=== PATIENT | male | born 1955 | race Caucasian/White ===

== ENCOUNTER 2019-06-08 09:35 | Emergency (ER) | payer MEDICARE, OTHER ==
[~2019-06-08] VITALS: Ht 175.3 cm; Wt 75.7 kg
--- NOTE | 2019-06-08 09:48 | NUR ---
SEEN AND EXAMINED BY DR. CHAND
--- NOTE | 2019-06-08 09:51 | NUR ---
PT BIB RA FROM [facility] FOR C/O OF DIARRHEA 5x LAST NIGHT, VOMITING, AND C/O OF BACK PAIN. PT IS AAOX4. NO SOB, NAD, VITAL SIGNS STABLE. WILL CONTINUE TO MONITOR
[2019-06-08] MEDS ORDERED: ONDANSETRON HCL/PF 4 MG/2 ML VIAL ONE (09:52)
[2019-06-08] MEDS ORDERED: MORPHINE SULFATE INJ 4 MG/ML DISP.SYRIN ONE ×3 (09:52→13:21)
[2019-06-08] MEDS ORDERED: MORPHINE SULFATE INJ 2 MG/ML DISP.SYRIN IV ONE ×3 (10:00→13:30)
[2019-06-08] MEDS ORDERED: IV NS 0.9% 1,000 ML BAG IV ONE (10:00)
[2019-06-08] MEDS ORDERED: ONDANSETRON HCL/PF 4 MG/2 ML VIAL IVP ONE (10:00)
--- NOTE | 2019-06-08 10:04 | NUR ---
TELEPHONIC CASE MANAGER AT BEDSIDE FOR XR OF CHEST
[2019-06-08 10:12] LABS: BASOPHILS % (AUTO) 0.4 % (0.0-2.0); EOSINOPHILS % (AUTO) 0.3 % (0.0-6.0); HEMATOCRIT 47 % (39-51); HEMOGLOBIN 16.3 g/dL (13.5-17.5); LYMPHOCYTES % (AUTO) 15.8 % (20.0-44.0); MEAN CORPUSCULAR HGB CONC 35 g/dl (31.0-36.0); MEAN CORPUSCULAR VOLUME 94 fL (80-96); MONOCYTES # (AUTO) 0.6 /CMM (0.1-1.30); MONOCYTES % (AUTO) 8.7 % (2.0-12.0); NEUTROPHILS # (AUTO) 4.8 /CMM (1.8-8.9); NEUTROPHILS % (AUTO) 74.8 % (43.0-81.0); PLATELET COUNT (AUTO) 105 /CMM (150-450); WHITE BLOOD COUNT (AUTO) 6.4 K/uL (4.3-11.0)
[2019-06-08] MEDS ORDERED: GABA-534 PO (10:23)
[2019-06-08] MEDS ORDERED: HYDR-4354 PO (10:23)
[2019-06-08] MEDS ORDERED: ALPR2TAB2 PO (10:23)
[2019-06-08 10:30] LABS: ALBUMIN 3.8 g/dL (3.4-5.0); BILIRUBIN,DIRECT 0.2 mg/dL (0.0-0.2); BILIRUBIN,TOTAL 0.7 mg/dL (0.2-1.0); CREATININE 0.7 mg/dL (0.6-1.3); POTASSIUM 3.2 mmol/L (3.5-5.1); TOTAL PROTEIN, SERUM 7.3 g/dL (6.4-8.2)
--- NOTE | 2019-06-08 11:48 | NUR ---
CALL BACK FROM [facility] PROPERTY CLAIMS MANAGER, PLAN TO PLACE HIM IN A SNF
--- NOTE | 2019-06-08 12:03 | NUR ---
Dennis koch in [facility] - 06/08/19 at 1203 by DAE SPOKE WITH RUBY SLOT TAG INSERTER REGARDING PLACEKMENT FOR A ASSISTED LIVING FACILITY.
--- NOTE | 2019-06-08 12:04 | NUR ---
SPOKE WITH RUBY GRAVITY PROSPECTING OPERATOR REGARDING PLACEKMENT FOR A ASSISTED LIVING FACILITY.
--- NOTE | 2019-06-08 13:11 | NUR ---
SPOKE W/ RUBY, PATIENT WILLING TO GO TO [facility] [place] TO CALL FOR REPORT. DR. VICENTE OROPEZA
--- NOTE | 2019-06-08 13:38 | NUR ---
CALLED [facility] FOR TRANSPORT TO [facility], ETA 30 MIN, TRIP# [phone]
--- NOTE | 2019-06-08 13:45 | NUR ---
REPORT GIVEN TO LANE FOR ANAT.
--- NOTE | 2019-06-08 14:36 | NUR ---
picked up by [facility] unit 113
[2019-06-08 14:38] VITALS: BP 130/55
== END 2019-06-08 14:39 ==
LOC: ER 09:38
DX: R19.7 Diarrhea, unspecified (principal); G89.29 Other chronic pain; Z95.0 Presence of cardiac pacemaker; Z98.890 Other specified postprocedural states; Z88.0 Allergy status to penicillin; Z88.1 Allergy status to other antibiotic agents; Z85.828 Personal history of other malignant neoplasm of skin; Z79.899 Other long term (current) drug therapy
CPT/HCPCS: 36415; 71045; 80048; 80076; 83690; 85025; 87081; 93005; 96361; 96374; 96375; 96376; 99284; J2270 ×3; J2405; J7030

== ENCOUNTER 2019-06-16 08:29 | Emergency (ER) | payer MEDICARE, OTHER ==
[~2019-06-16] VITALS: Ht 175.3 cm; Wt 74.8 kg
[~2019-06-16 08:29] MED LIST: ALPR2TAB2 PO; GABA-534 PO; HYDR-4354 PO
--- NOTE | 2019-06-16 08:45 | NUR ---
PT BIB RA FROM [facility] WITH C/O OF CONGESTION WITH COUGH. PATIENT IS AAOX4. AMBULATORY WITH CANE. WHEEZING CAN BE HEARD FROM AUSCULATATION WHEN PATIENT COUGHS. 97% OXYGEN ON ROOM AIR. NO SOB. NOT IN ANY DISTRESS. WILL CONTINUE TO MONITOR
[2019-06-16] MEDS ORDERED: MORPHINE SULFATE INJ 4 MG/ML DISP.SYRIN ONE (08:57)
[2019-06-16] MEDS ORDERED: MORPHINE SULFATE INJ 2 MG/ML DISP.SYRIN IV ONE (09:00)
--- NOTE | 2019-06-16 09:30 | NUR ---
Dennis kohc in [place] - 06/16/19 at 0937 by YESSI BLOOD DRAWN AND SENT TO LAB.
[2019-06-16 09:40] LABS: BASOPHILS % (AUTO) 1.4 % (0.0-2.0); EOSINOPHILS % (AUTO) 2.8 % (0.0-6.0); HEMATOCRIT 42 % (39-51); HEMOGLOBIN 14.4 g/dL (13.5-17.5); LYMPHOCYTES # (AUTO) 0.8 /CMM (0.8-4.8); MEAN CORPUSCULAR HGB CONC 34 g/dl (31.0-36.0); MEAN CORPUSCULAR VOLUME 94 fL (80-96); MONOCYTES # (AUTO) 0.3 /CMM (0.1-1.30); MONOCYTES % (AUTO) 9.4 % (2.0-12.0); NEUTROPHILS # (AUTO) 2.4 /CMM (1.8-8.9); NEUTROPHILS % (AUTO) 65.4 % (43.0-81.0); PLATELET COUNT (AUTO) 69 /CMM (150-450); RED BLOOD CELL COUNT(AUTO) 4.47 MIL/uL (4.5-6.0); WHITE BLOOD COUNT (AUTO) 3.7 K/uL (4.3-11.0)
[2019-06-16 09:48] LABS: CALCIUM, SERUM 8.6 mg/dL (8.5-10.1); CREATININE 0.6 mg/dL (0.6-1.3); POTASSIUM 4.5 mmol/L (3.5-5.1)
--- NOTE | 2019-06-16 09:50 | NUR ---
PATIENT RETURNED FROM XRAY
[2019-06-16 10:13] LABS: LYMPHOCYTES % (MANUAL) 22 % (16-48); MONOCYTES % (MANUAL) 9 % (0-11.0); NEUTROPHILS % (MANUAL) 68 (42-76)
[2019-06-16 10:14] LABS: EOSINOPHILS % (MANUAL) 1 % (0-4)
[2019-06-16] MEDS ORDERED: ALBUTEROL FS 2.5 MG/3 ML VIAL.NEB NEB ONE ×2 (10:30→11:30)
[2019-06-16] MEDS ORDERED: IPRATROPIUM NEB FS 0.5 MG/2.5 ML AMPUL.NEB NEB ONE ×2 (10:30→11:30)
[2019-06-16] MEDS ORDERED: IPRATROPIUM NEB FS 0.5 MG/2.5 ML AMPUL.NEB ONE ×2 (10:35→12:32)
[2019-06-16] MEDS ORDERED: ALBUTEROL FS 2.5 MG/3 ML VIAL.NEB ONE ×2 (10:35→12:32)
--- NOTE | 2019-06-16 10:41 | NUR ---
DR MILES ON PHONE W/ DR DRIVER.
--- NOTE | 2019-06-16 10:46 | NUR ---
RT PT REFUSED BLOOD GAS AWARE PT REFUSES TX AFTER 1 MIN ON MASK Addendum: 06/16/19 at 1053 by ERNA HARRELL RT Amended: Links added.
[2019-06-16] MEDS ORDERED: HYDROCODONE/APAP 5/325MG 1 EACH TABLET PO ONE (11:30)
[2019-06-16] MEDS ORDERED: AZITHROMYCIN 250 MG TABLET PO ONE (11:30)
[2019-06-16] MEDS ORDERED: AZITHROMYCIN 250 MG TABLET ONE (11:33)
[2019-06-16] MEDS ORDERED: HYDROCODONE/APAP 5/325MG 1 EACH TABLET ONE (11:33)
--- NOTE | 2019-06-16 12:15 | NUR ---
REPORT GIVEN TO OSIEL AT [facility] FOR ANAT.
--- NOTE | 2019-06-16 12:40 | NUR ---
CALLED [facility] [phone] TRIP #[phone]
--- NOTE | 2019-06-16 14:08 | NUR ---
CJ ARRIVED FOR PATIENT TO BE TRANSFERRED TO [facility]. REPORT GIVEN TO SHIRLEY RODRIGUEZ TO CARRY OUT TRANSFER.
[2019-06-16 14:15] VITALS: BP 118/72
== END 2019-06-16 14:15 | disposition home or self-care (01) ==
LOC: ER 08:31
DX: J44.1 Chronic obstructive pulmonary disease with (acute) exacerbation (principal); Z95.0 Presence of cardiac pacemaker; Z85.828 Personal history of other malignant neoplasm of skin; Z88.0 Allergy status to penicillin; Z88.1 Allergy status to other antibiotic agents; Z79.899 Other long term (current) drug therapy; Z98.890 Other specified postprocedural states
CPT/HCPCS: 36415; 71046; 80048; 84145; 85025; 87040 ×2; 93005; 94640 ×2; 96374; 99284; J2270

== ENCOUNTER 2019-07-10 07:02 | Emergency (ER) | payer MEDICARE, OTHER ==
[~2019-07-10] VITALS: Ht 175.3 cm; Wt 70.3 kg
--- NOTE | 2019-07-10 07:11 | NUR ---
PT [id number] C/O R SIDED UPPER ABDOMINAL PAIN X2-3 WEEKS +NAUSEA, +VOMITTING, -FEVER. PT AAOX4, VSS, BREATHING EVEN AND UNLABORED ON ROOM AIR W/ NAD. PT CONNECTED TO THE MONITOR AND POX.
--- NOTE | 2019-07-10 07:26 | NUR ---
PT AMBULATED TO RESTROOM USING CANE
[2019-07-10] MEDS ORDERED: FAMOTIDINE/PF INJ 20 MG/2 ML VIAL IV ONE ×2 (07:30→07:33)
[2019-07-10] MEDS ORDERED: IV NS 0.9% 1,000 ML BAG IV ONE (07:30)
[2019-07-10] MEDS ORDERED: MORPHINE SULFATE INJ 2 MG/ML DISP.SYRIN IV ONE ×2 (07:30→08:30)
[2019-07-10] MEDS ORDERED: ONDANSETRON HCL/PF 4 MG/2 ML VIAL IVP ONE (07:30)
[2019-07-10] MEDS ORDERED: ACETAMINOPHEN ES 500 MG TABLET PO ONE (07:30)
[2019-07-10] MEDS ORDERED: MORPHINE SULFATE INJ 4 MG/ML DISP.SYRIN ONE ×3 (07:32→08:15)
[2019-07-10] MEDS ORDERED: ONDANSETRON HCL/PF 4 MG/2 ML VIAL ONE (07:32)
[2019-07-10] MEDS ORDERED: ACETAMINOPHEN ES 500 MG TABLET ONE (07:32)
--- NOTE | 2019-07-10 07:35 | NUR ---
IV LINE ESTABLISHED, BLOOD DRAWN AND SENT TO LAB.
[2019-07-10 07:48] LABS: BASOPHILS # (AUTO) 0.1 /CMM (0.0-0.2); BASOPHILS % (AUTO) 2.4 % (0.0-2.0); EOSINOPHILS % (AUTO) 2.3 % (0.0-6.0); HEMATOCRIT 48 % (39-51); HEMOGLOBIN 16.2 g/dL (13.5-17.5); LYMPHOCYTES # (AUTO) 0.9 /CMM (0.8-4.8); LYMPHOCYTES % (AUTO) 20.8 % (20.0-44.0); MEAN CORPUSCULAR HGB CONC 34 g/dl (31.0-36.0); MEAN CORPUSCULAR VOLUME 94 fL (80-96); MONOCYTES # (AUTO) 0.2 /CMM (0.1-1.30); MONOCYTES % (AUTO) 4.6 % (2.0-12.0); NEUTROPHILS % (AUTO) 69.9 % (43.0-81.0); PLATELET COUNT (AUTO) 97 /CMM (150-450); RED BLOOD CELL COUNT(AUTO) 5.08 MIL/uL (4.5-6.0); WHITE BLOOD COUNT (AUTO) 4.2 K/uL (4.3-11.0)
[2019-07-10 07:54] LABS: CALCIUM, SERUM 9.3 mg/dL (8.5-10.1); CREATININE 0.6 mg/dL (0.6-1.3)
[2019-07-10 08:00] LABS: BILIRUBIN,DIRECT 0.1 mg/dL (0.0-0.2); BILIRUBIN,TOTAL 0.7 mg/dL (0.2-1.0); TOTAL PROTEIN, SERUM 7.9 g/dL (6.4-8.2)
--- NOTE | 2019-07-10 08:35 | NUR ---
PT TAKEN TO CT
--- NOTE | 2019-07-10 08:44 | NUR ---
Dennis koch in [facility] - 07/10/19 at 0845 by VIRA PT TAKEN TO CT
--- NOTE | 2019-07-10 08:45 | NUR ---
PT BACK FROM CT
[2019-07-10 09:55] LABS: BAND % (MANUAL) 1 % (0.0-5.0); EOSINOPHILS % (MANUAL) 3 % (0-4); LYMPHOCYTES % (MANUAL) 21 % (16-48); MONOCYTES % (MANUAL) 4 % (0-11.0); NEUTROPHILS % (MANUAL) 71 (42-76)
[2019-07-10] MEDS ORDERED: KETOROLAC TROMETHAMINE INJ 30 MG/ML VIAL IV ONE (10:00)
[2019-07-10] MEDS ORDERED: KETOROLAC TROMETHAMINE INJ 30 MG/ML VIAL ONE (10:03)
--- NOTE | 2019-07-10 10:33 | NUR ---
CALLED [facility] FOR TRANSPORT TO [facility]. ETA 1200 TRIP # [id number].
--- NOTE | 2019-07-10 10:41 | NUR ---
CALLED [facility] FOR BLS TRANSPORT. ETA 1100.
--- NOTE | 2019-07-10 11:11 | NUR ---
Patient discharged to home in stable condition. Written and verbal after care instructions given. Patient verbalizes understanding of instruction. Pt transported via [facility].
[2019-07-10 11:14] VITALS: BP 127/81
== END 2019-07-10 11:15 ==
LOC: ER 07:04
DX: K52.9 Noninfective gastroenteritis and colitis, unspecified (principal); R10.10 Upper abdominal pain, unspecified; G89.29 Other chronic pain; M54.9 Dorsalgia, unspecified; Z85.828 Personal history of other malignant neoplasm of skin; Z88.0 Allergy status to penicillin; Z88.1 Allergy status to other antibiotic agents; Z79.899 Other long term (current) drug therapy; Z95.0 Presence of cardiac pacemaker; Z98.890 Other specified postprocedural states
CPT/HCPCS: 36415; 74176; 80048; 80076; 83690; 85025; 96361; 96374; 96375; 96376; 99284; J1885; J2270 ×3; J2405; J3490; J7030

== ENCOUNTER 2019-09-06 12:23 | Emergency (ER) | payer MEDICARE, OTHER ==
[~2019-09-06] VITALS: Ht 175.3 cm; Wt 74.8 kg
[2019-09-06] MEDS ORDERED: IV NS 0.9% 500 ML BAG IV ONE (13:00)
[2019-09-06] MEDS ORDERED: MORPHINE SULFATE INJ 2 MG/ML DISP.SYRIN IV ONE (13:00)
[2019-09-06] MEDS ORDERED: ONDANSETRON HCL/PF 4 MG/2 ML VIAL IVP ONE (13:00)
[2019-09-06 13:20] LABS: CALCIUM, SERUM 8.9 mg/dL (8.5-10.1); CREATININE 0.6 mg/dL (0.6-1.3); POTASSIUM 4.2 mmol/L (3.5-5.1)
[2019-09-06 13:23] LABS: BASOPHILS % (AUTO) 1.4 % (0.0-2.0); EOSINOPHILS % (AUTO) 1.5 % (0.0-6.0); HEMATOCRIT 45 % (39-51); HEMOGLOBIN 15.3 g/dL (13.5-17.5); LYMPHOCYTES # (AUTO) 0.8 /CMM (0.8-4.8); LYMPHOCYTES % (AUTO) 23.7 % (20.0-44.0); MEAN CORPUSCULAR HGB CONC 34 g/dl (31.0-36.0); MEAN CORPUSCULAR VOLUME 93 fL (80-96); MONOCYTES # (AUTO) 0.5 /CMM (0.1-1.30); MONOCYTES % (AUTO) 15.7 % (2.0-12.0); NEUTROPHILS # (AUTO) 1.9 /CMM (1.8-8.9); NEUTROPHILS % (AUTO) 57.7 % (43.0-81.0); PLATELET COUNT (AUTO) 86 /CMM (150-450); RED BLOOD CELL COUNT(AUTO) 4.79 MIL/uL (4.5-6.0); WHITE BLOOD COUNT (AUTO) 3.4 K/uL (4.3-11.0)
[2019-09-06 13:26] LABS: ALBUMIN 3.5 g/dL (3.4-5.0); BILIRUBIN,DIRECT 0.2 mg/dL (0.0-0.2); BILIRUBIN,TOTAL 0.6 mg/dL (0.2-1.0); TOTAL PROTEIN, SERUM 6.9 g/dL (6.4-8.2)
[2019-09-06] MEDS ORDERED: ONDANSETRON HCL/PF 4 MG/2 ML VIAL ONE (13:37)
[2019-09-06] MEDS ORDERED: MORPHINE SULFATE INJ 4 MG/ML DISP.SYRIN ONE (13:37)
--- NOTE | 2019-09-06 13:47 | NUR ---
Patient is hard stick noted needle scar track hx of IV used ,Obtained heplock RT wrist noted redness and MD aware place cool site to area and elevate
[2019-09-06] MEDS ORDERED: oxyCODONE/APAP (5/325 MG) 1 UDTAB TABLET PO ONE (14:30)
--- NOTE | 2019-09-06 14:43 | NUR ---
CALLED [facility] ETA 1700.
[2019-09-06] MEDS ORDERED: oxyCODONE/APAP (5/325 MG) 1 UDTAB TABLET ONE (14:46)
--- NOTE | 2019-09-06 14:50 | NUR ---
CALLED [facility] FOR TRANSPORT TO [facility]. ETA 1630. TRIP NUMBER [id number].
--- NOTE | 2019-09-06 14:59 | NUR ---
Called report rehab facility spoke to Juve made aware patient is DC back to FACILITY
--- NOTE | 2019-09-06 14:59 | NUR ---
Noted patient is ambulatory non distress no nausea and vomiting ,called transporter
[2019-09-06 15:38] LABS: EOSINOPHILS % (MANUAL) 1 % (0-4); LYMPHOCYTES % (MANUAL) 36 % (16-48); MONOCYTES % (MANUAL) 9 % (0-11.0); NEUTROPHILS % (MANUAL) 52 (42-76); REACTIVE LYMPHOCYTES 2 % (0-0)
[2019-09-06 16:55] VITALS: BP 134/67
--- NOTE | 2019-09-06 16:56 | NUR ---
Patient awakealert ambulatory refused to stay in bed ,noted no nause and vomit follow up for transportation
--- NOTE | 2019-09-06 17:33 | NUR ---
EMS transporter here report given to aure to [facility] /Facility
== END 2019-09-06 17:33 | disposition home or self-care (01) ==
LOC: ER 12:49
DX: R10.31 Right lower quadrant pain (principal); G89.29 Other chronic pain; Z95.0 Presence of cardiac pacemaker; Z98.890 Other specified postprocedural states; Z88.0 Allergy status to penicillin; Z88.1 Allergy status to other antibiotic agents; Z79.899 Other long term (current) drug therapy; Z85.828 Personal history of other malignant neoplasm of skin
CPT/HCPCS: 36415; 74176; 80048; 80076; 83605; 83690; 85025; 96374; 96375; 99284; J2270; J2405; J7040

== ENCOUNTER → 2019-09-22 | Emergency (ER) | payer MEDICARE, OTHER ==
[~2019-09-22] VITALS: Ht 167.6 cm; Wt 68.0 kg
[2019-09-22 13:04] VITALS: BP 145/88
--- NOTE | 2019-09-22 13:06 | NUR ---
Patient does not wish to proceed with medical care recommended by Dr. Fischer. Patient given information related to possible complications, up to and including , which could occur as a result of leaving the hospital at this time. Patient verbalizes understanding of risks involved due to leaving against medical advice. Patient has signed AMA form.
--- NOTE | 2019-09-22 13:07 | NUR ---
(pt. is ambulatory with a steady gait, alert and oriented x 4. IV removed. Catheter intact and site benign. Pressure and 4x4 applied to site. No bleeding noted.
== END | disposition left against medical advice (07) ==
LOC: ER 12:58
DX: R41.82 Altered mental status, unspecified (principal); T40.601A Poisoning by unspecified narcotics, accidental (unintentional), initial encounter; G89.29 Other chronic pain; Z95.0 Presence of cardiac pacemaker; Z98.890 Other specified postprocedural states; Z85.828 Personal history of other malignant neoplasm of skin; Z88.0 Allergy status to penicillin; Z88.1 Allergy status to other antibiotic agents; Z79.899 Other long term (current) drug therapy; Y92.89 Other specified places as the place of occurrence of the external cause

== ENCOUNTER → 2019-09-26 | Emergency (ER) | payer MEDICARE, OTHER ==
[~2019-09-26] VITALS: Ht 175.3 cm; Wt 72.6 kg
[~2019-09-26] MED LIST changes: +HYDROCODONE/APAP 5/325MG 1 EACH TABLET ONE; +HYDROCODONE/APAP 5/325MG 1 EACH TABLET PO ONE; +IV NS 0.9% 1,000 ML BAG IV ONE; +IV NS 0.9% 500 ML BAG IV ONE; +POTASSIUM CHLORIDE 20 MEQ TAB.PRT.SR PO ONE; +POTASSIUM CL. PREMIX PERIPHER. 50 ML IV SCH
--- NOTE | 2019-09-26 15:15 | NUR ---
PT REC'D TO ER VIA EMS PT HAS FAINTED TWICE IN ONE WEEK HARD STICK WS HERE FOR THE SAME THING WAS STUCK 9 TIMES DEWAYNE TRIED 2 TIMES GENER ONCE CALLED FOR CENTRAL LINE . PT CALM AND QUIET VSS
--- NOTE | 2019-09-26 16:10 | NUR ---
UA SENT TO LAB
[2019-09-26 16:40] LABS: BASOPHILS % (AUTO) 0.6 % (0.0-2.0); EOSINOPHILS % (AUTO) 2.1 % (0.0-6.0); HEMATOCRIT 43 % (39-51); HEMOGLOBIN 14.9 g/dL (13.5-17.5); LYMPHOCYTES # (AUTO) 0.7 /CMM (0.8-4.8); LYMPHOCYTES % (AUTO) 11.8 % (20.0-44.0); MEAN CORPUSCULAR HGB CONC 34 g/dl (31.0-36.0); MEAN CORPUSCULAR VOLUME 93 fL (80-96); MONOCYTES # (AUTO) 0.6 /CMM (0.1-1.30); MONOCYTES % (AUTO) 11.3 % (2.0-12.0); NEUTROPHILS # (AUTO) 4.3 /CMM (1.8-8.9); NEUTROPHILS % (AUTO) 74.2 % (43.0-81.0); PLATELET COUNT (AUTO) 86 /CMM (150-450); RED BLOOD CELL COUNT(AUTO) 4.66 MIL/uL (4.5-6.0); WHITE BLOOD COUNT (AUTO) 5.8 K/uL (4.3-11.0)
[2019-09-26 16:56] VITALS: BP 110/73
--- NOTE | 2019-09-26 16:57 | NUR ---
PT WAS VERY HARD STICK RT FA 22G GIVEN NS BOLUS AND NORCO 5/325 FOR BACK PAINA
[2019-09-26 17:03] LABS: CALCIUM, SERUM 6.1 mg/dL (8.5-10.1); CARBON DIOXIDE 22 mmol/L (21-32); CHLORIDE 117 mmol/L (98-107); CREATININE 0.3 mg/dL (0.6-1.3); GLUCOSE 75 mg/dL (74-106); SODIUM SERUM 147 mmol/L (136-145); UREA NITROGEN, BLOOD 15 mg/dL (7-18)
[2019-09-26 17:06] LABS: POTASSIUM 2.7 mmol/L (3.5-5.1)
--- NOTE | 2019-09-26 17:26 | NUR ---
GOT ACCEPTED TO [facility] ACCEPTING MD KATHYA DRIVER.
--- NOTE | 2019-09-26 18:15 | NUR ---
Patient does not wish to proceed with medical care recommended by ( ). Patient given information related to possible complications, up to and including , which could occur as a result of leaving the hospital at this time. Patient verbalizes understanding of risks involved due to leaving against medical advice. Patient has signed AMA form.
[2019-09-26 18:58] LABS: LYMPHOCYTES % (MANUAL) 9 % (16-48); MONOCYTES % (MANUAL) 10 % (0-11.0); NEUTROPHILS % (MANUAL) 80 (42-76); REACTIVE LYMPHOCYTES 1 % (0-0)
== END | disposition left against medical advice (07) ==
LOC: ER 15:08
DX: R07.89 Other chest pain (principal); R55 Syncope and collapse; E87.6 Hypokalemia; R19.7 Diarrhea, unspecified; G89.29 Other chronic pain; M54.9 Dorsalgia, unspecified; Z79.899 Other long term (current) drug therapy; Z98.890 Other specified postprocedural states; Z88.0 Allergy status to penicillin; Z88.1 Allergy status to other antibiotic agents; Z85.828 Personal history of other malignant neoplasm of skin
CPT/HCPCS: 36415; 71045-TC; 80048-TC; 84484-TC; 85025-TC

== ENCOUNTER 2021-03-28 14:17 | Emergency (ER) | payer MEDICARE, OTHER ==
[~2021-03-28] VITALS: Ht 175.3 cm; Wt 77.1 kg
[~2021-03-28 14:17] MED LIST changes: -HYDROCODONE/APAP 5/325MG 1 EACH TABLET ONE; -HYDROCODONE/APAP 5/325MG 1 EACH TABLET PO ONE; -IV NS 0.9% 1,000 ML BAG IV ONE; -IV NS 0.9% 500 ML BAG IV ONE; -POTASSIUM CHLORIDE 20 MEQ TAB.PRT.SR PO ONE; -POTASSIUM CL. PREMIX PERIPHER. 50 ML IV SCH
--- NOTE | 2021-03-28 14:21 | NUR ---
TO ER BED 4, C/O BIB RA [facility],WORSENING ABDOMINAL PAIN X 3 WEEKS,CONSTIPATED, AWAITING MD BRIONES
[2021-03-28] MEDS ORDERED: ZOLP5TAB8 PO (14:34)
[2021-03-28] MEDS ORDERED: METH10TA2 PO (14:34)
[2021-03-28] MEDS ORDERED: CYCL5TAB PO (14:34)
[2021-03-28] MEDS ORDERED: PANT40TA2 PO (14:34)
[2021-03-28] MEDS ORDERED: CLOT15CR27 TP (14:34)
[2021-03-28] MEDS ORDERED: SERT50TA PO (14:34)
[2021-03-28] MEDS ORDERED: MEGE400O4 PO (14:34)
--- NOTE | 2021-03-28 14:35 | NUR ---
SALINE LOCK ESTABLISHED, BLOOD DRAWN
--- NOTE | 2021-03-28 15:00 | NUR ---
URINE COLLECTED AND SENT TO LAB
[2021-03-28 15:18] LABS: CALCIUM, SERUM 9.3 mg/dL (8.5-10.1); CARBON DIOXIDE 22 mmol/L (21-32); CHLORIDE 104 mmol/L (98-107); CREATININE 0.7 mg/dL (0.6-1.3); GLUCOSE 90 mg/dL (74-106); POTASSIUM 3.8 mmol/L (3.5-5.1); SODIUM SERUM 141 mmol/L (136-145); UREA NITROGEN, BLOOD 21 mg/dL (7-18)
[2021-03-28 15:18] LABS: BILIRUBIN,URINE SMALL (NEGATIVE); COLOR,URINE DARK YELLOW (YELLOW); LEUKOCYTE ESTERASE ,URINE Negative (NEGATIVE); NITRITE, URINE Negative (NEGATIVE); PH,URINE 5.5 (5.0-8.0); PROTEIN,URINE Negative (NEGATIVE); UGLUCOSE Negative (NEGATIVE); UROBILINOGEN,URINE 0.2 EU/dL (0.2)
[2021-03-28 15:24] LABS: ALANINE AMINOTRANSFERASE 19 U/L (12-78); ALBUMIN 4.1 g/dL (3.4-5.0); ALKALINE PHOSPHATASE 95 U/L (46-116); ASPARTATE AMINOTRANSFERASE 19 U/L (15-37); BILIRUBIN,DIRECT 0.2 mg/dL (0.0-0.2); BILIRUBIN,TOTAL 0.8 mg/dL (0.2-1.0); LIPASE 55 U/L (73-393); TOTAL PROTEIN, SERUM 7.7 g/dL (6.4-8.2)
[2021-03-28] MEDS ORDERED: KETOROLAC TROMETHAMINE 15 MG/ML VIAL ONE (15:29)
[2021-03-28] MEDS ORDERED: BISACODYL SUPP (10 MG) 10 MG/SUPP.RECT SUPP.RECT RC ONE ×2 (15:29→15:30)
[2021-03-28] MEDS ORDERED: KETOROLAC TROMETHAMINE INJ 30 MG/ML VIAL IV ONE (15:30)
[2021-03-28 15:31] LABS: BASOPHILS % (AUTO) 0.7 % (0.0-2.0); EOSINOPHILS % (AUTO) 1.9 % (0.0-6.0); HEMATOCRIT 47 % (39-51); HEMOGLOBIN 16.8 g/dL (13.5-17.5); LYMPHOCYTES # (AUTO) 1.8 K/uL (0.8-4.8); LYMPHOCYTES % (AUTO) 26.7 % (20.0-44.0); MEAN CORPUSCULAR HGB CONC 36 g/dl (31.0-36.0); MEAN CORPUSCULAR VOLUME 92 fL (80-96); MONOCYTES # (AUTO) 0.5 K/uL (0.1-1.30); MONOCYTES % (AUTO) 6.9 % (2.0-12.0); NEUTROPHILS # (AUTO) 4.2 K/uL (1.8-8.9); NEUTROPHILS % (AUTO) 63.8 % (43.0-81.0); PLATELET COUNT (AUTO) 101 K/uL (150-450); RED BLOOD CELL COUNT(AUTO) 5.14 MIL/uL (4.5-6.0); WHITE BLOOD COUNT (AUTO) 6.7 K/uL (4.3-11.0)
[2021-03-28] MEDS ORDERED: IV NS 0.9% 0 ML IV ONE (15:33)
[2021-03-28] MEDS ORDERED: IOHEXOL-300 100 ML VIAL IV ONE (15:33)
[2021-03-28 15:34] LABS: BACTERIA,URINE Few /HPF (None Seen); MUCUS,URINE Many /LPF (None Seen); SQUAMOUS EPITHELIAL CELL,UR Few /HPF (None Seen)
--- NOTE | 2021-03-28 15:39 | NUR ---
US AT BEDSIDE
[2021-03-28 16:09] VITALS: BP 140/78
--- NOTE | 2021-03-28 16:14 | NUR ---
TRANSPORT [facility] CALLED ETA 30 MINS.
[2021-03-28] MEDS ORDERED: IV NS 0.9% 1,000 ML IV ONE (16:30)
== END 2021-03-28 16:58 | disposition left against medical advice (07) ==
LOC: ER 14:21
DX: R10.84 Generalized abdominal pain (principal); K59.00 Constipation, unspecified; E86.0 Dehydration; D69.6 Thrombocytopenia, unspecified; I25.10 Atherosclerotic heart disease of native coronary artery without angina pectoris; G89.29 Other chronic pain; F32.9 Major depressive disorder, single episode, unspecified; G47.00 Insomnia, unspecified; Z95.0 Presence of cardiac pacemaker; Z98.890 Other specified postprocedural states; Z88.0 Allergy status to penicillin; Z88.1 Allergy status to other antibiotic agents; Z79.899 Other long term (current) drug therapy
CPT/HCPCS: 36415; 76705; 80048; 80076; 81001; 83690; 84484; 85025; 85730; 93005; 96374; 99285; J1885; J7050; Q9967

== ENCOUNTER 2022-11-13 17:54 | Inpatient (IN) | payer BC, OTHER ==
[~2022-11-13] VITALS: Ht 175.3 cm; Wt 82.1 kg
[~2022-11-13 17:54] MED LIST changes: -ALPR2TAB2 PO; +CLOT15CR27 TP; +CYCL5TAB PO; -GABA-534 PO; -HYDR-4354 PO; +MEGE400O4 PO; +METH10TA2 PO; +PANT40TA2 PO; +SERT50TA PO; +ZOLP5TAB8 PO
[2022-11-13] MEDS ORDERED: MORPHINE SULFATE INJ 2 MG/ML DISP.SYRIN IV ONE ×3 (18:30→23:30)
[2022-11-13] MEDS ORDERED: PANTOPRAZOLE 40 MG VIAL IV ONE (18:30)
[2022-11-13] MEDS ORDERED: IV NS 0.9% 1,000 ML BAG IV ONE (18:30)
[2022-11-13] MEDS ORDERED: ONDANSETRON HCL/PF 4 MG/2 ML VIAL IVP ONE (18:30)
[2022-11-13] MEDS ORDERED: ONDANSETRON HCL/PF 4 MG/2 ML VIAL ONE ×2 (18:36→23:50)
[2022-11-13] MEDS ORDERED: MORPHINE SULFATE INJ 4 MG/ML DISP.SYRIN ONE (18:36)
[2022-11-13] MEDS ORDERED: PANTOPRAZOLE 40 MG VIAL ONE (18:36)
[2022-11-13 19:05] LABS: ALBUMIN 3.5 g/dL (3.4-5.0); BILIRUBIN,DIRECT 0.1 mg/dL (0.0-0.2); BILIRUBIN,TOTAL 0.3 mg/dL (0.2-1.0); CALCIUM, SERUM 8.8 mg/dL (8.5-10.1); CREATININE 0.6 mg/dL (0.6-1.3); POTASSIUM 3.7 mmol/L (3.5-5.1); TOTAL PROTEIN, SERUM 6.3 g/dL (6.4-8.2)
--- NOTE | 2022-11-13 19:10 | NUR ---
PT IN BED 7, A/O X4 BREATHING UNLABORED ON ROOM AIR 98% o2sat. C/O ABDOMINAL PAIN 10/10 PAIN AND BLOOD IN STOOL. PT CONNECTED TO BEDSIDE MONITOR HI FOWLERS. BED LOCKED IN LOWEST POSTION SIDE RAILS UP.
--- NOTE | 2022-11-13 19:13 | NUR ---
R HAND 22G STARTED BLOOD DRAWN AND AND SENT TO LAB.
[2022-11-13] MEDS ORDERED: MORPHINE SULFATE INJ 2 MG/ML DISP.SYRIN ONE (19:34)
[2022-11-13 19:46] LABS: BASOPHILS % (AUTO) 0.7 % (0.0-2.0); EOSINOPHILS % (AUTO) 2.5 % (0.0-6.0); HEMATOCRIT 44 % (39-51); HEMOGLOBIN 14.6 g/dL (13.5-17.5); LYMPHOCYTES # (AUTO) 1.3 K/uL (0.8-4.8); LYMPHOCYTES % (AUTO) 20.2 % (20.0-44.0); MEAN CORPUSCULAR HGB CONC 34 g/dl (31.0-36.0); MEAN CORPUSCULAR VOLUME 93 fL (80-96); MONOCYTES # (AUTO) 0.5 K/uL (0.1-1.30); MONOCYTES % (AUTO) 7.5 % (2.0-12.0); NEUTROPHILS # (AUTO) 4.4 K/uL (1.8-8.9); NEUTROPHILS % (AUTO) 69.1 % (43.0-81.0); PLATELET COUNT (AUTO) 107 K/uL (150-450); RED BLOOD CELL COUNT(AUTO) 4.66 MIL/uL (4.5-6.0); WHITE BLOOD COUNT (AUTO) 6.3 K/uL (4.3-11.0)
[2022-11-13] MEDS ORDERED: IOHEXOL-300 100 ML VIAL IV ONE (19:47)
[2022-11-13] MEDS ORDERED: IV NS 0.9% 250 ML IV ONE (19:47)
--- NOTE | 2022-11-13 19:52 | NUR ---
CT CALLED ETA.
--- NOTE | 2022-11-13 20:01 | NUR ---
PT TAKEN TO CT
--- NOTE | 2022-11-13 20:01 | NUR ---
URINE SAMPLE COLLECTED AND SENT TO LAB
[2022-11-13 20:29] LABS: BILIRUBIN,URINE NEGATIVE (NEGATIVE); COLOR,URINE YELLOW (YELLOW); LEUKOCYTE ESTERASE ,URINE NEGATIVE (NEGATIVE); NITRITE, URINE NEGATIVE (NEGATIVE); PROTEIN,URINE NEGATIVE (NEGATIVE); UGLUCOSE NEGATIVE (NEGATIVE); UROBILINOGEN,URINE 0.2 EU/dL (0.2)
[2022-11-13 22:18] LABS: BACTERIA,URINE None seen /HPF (None Seen); RBC,URINE 0-2 /HPF (0-2); SQUAMOUS EPITHELIAL CELL,UR None Seen /HPF (None Seen); WBC,URINE NONE SEEN /HPF (0-3)
--- NOTE | 2022-11-13 23:15 | NUR ---
DR Brii GRIFFIN FOR Shonda DRIVER, PAGED.
[2022-11-13] MEDS ORDERED: ONDANSETRON HCL/PF 4 MG/2 ML VIAL IV STA (23:43)
--- NOTE | 2022-11-14 00:08 | NUR ---
DR IVERSON PAGED PER DR PINEDA.
--- NOTE | 2022-11-14 00:10 | NUR ---
NPO STARTING MIDNIGHT PER MD CHANDLER
--- NOTE | 2022-11-14 00:11 | NUR ---
REPORT GIVEN TO GUANAKITO LUCIANO FOR ANAT
[2022-11-14] MEDS ORDERED: PANTOPRAZOLE 80 MG in IV NS 0.9% 500 ML IV PRN (00:30)
--- NOTE | 2022-11-14 00:45 | NUR ---
MS DOWNSTAIRS MAID NOTE RECEIVED PATIENT FROM ER WITH RADHA. PATIENT IS A/O TIMES 4, ABLE TO VERBALIZE NEEDS. NO SOB, NO DISTRESS NOTED. ON ROOM AIR AND TOLERATING WELL. IV ACCESS ON THE RIGHT WRIST # 20, INTACT. PT'S SKIN IS INTACT. ALL THE BELONGINGS ACCOUNTED AND SIGN FOR. ALL SAFETY MEASURES IN PLACE. BED LOCKED IN THE LOWEST POSITION. CALL LIGHT AND TABLE IN EASY REACH. SIDE RAILS UP TIMES 2. WILL CONTINUE TO MONITOR CLOSELY.
[2022-11-14] MEDS: MORPHINE SULFATE INJ 2 MG/ML DISP.SYRIN IV PRN ×3 (02:15→11:09)
--- NOTE | 2022-11-14 02:15 | NUR ---
MS RN NOTE PT C/O TO ABDOMEN. MD FAVIOLA CHANDLER CALLED, AND MADE AWARE. NEW ORDER RECEIVED FOR MORPHINE 2 MG IV Q4H PRN. ORDER CARRIED OUT. MORPHINE ADMINISTERED TO PT.
[2022-11-14] MEDS: IV D5/ 0.9% NACL 1,000 ML IV PRN ×2 (02:28→18:02)
--- NOTE | 2022-11-14 07:03 | NUR ---
MS RN CLOSING NOTE PT REPORTS PAIN TO ABDOMEN. MORPHINE GIVEN TO PT. PT LEFT IN STABLE CONDITION. NO SOB, NO RESPIRATORY DISTRESS NOTED. SAFETY MEASURES MAINTAINED. WILL ENDORSE PT TO AM SHIFT NURSE FOR ANAT.
--- NOTE | 2022-11-14 07:46 | NUR ---
RN OPENING NOTE PATIENT AWAKE IN BED RESTING, A/O X 4. NO S/S OF PAIN NOTED AT THIS TIME. ON ROOM AIR, BREATHING EVEN UNLABORED, NO DISTRESS OR SHORTNESS OF BREATH NOTED. IV ACCESS R HAND #22G INTACT, PATENT AND FLUSHING WELL. FALL AND SAFETY MEASURES IN PLACE, BED ALARM ON, BED IN LOW AND LOCK POSITION, CALL LIGHT AND TABLE WITHIN EASY REACH, SIDE RAILS UP X2. WILL CONTINUE TO MONITOR.
--- NOTE | 2022-11-14 07:53 | NUR ---
RN OPENING NOTE PATIENT AWAKE IN BED RESTING, A/O X 4. NO S/S OF PAIN NOTED AT THIS TIME. ON ROOM AIR, BREATHING EVEN UNLABORED, NO DISTRESS OR SHORTNESS OF BREATH NOTED. IV ACCESS L HAND #22G INTACT, PATENT AND FLUSHING WELL. PATIENT WITH NGT IN PLACE AND DRAINING WELL. FALL AND SAFETY MEASURES IN PLACE, BED ALARM ON, BED IN LOW AND LOCK POSITION, CALL LIGHT AND TABLE WITHIN EASY REACH, SIDE RAILS UP X2. WILL CONTINUE TO MONITOR. Addendum: 11/14/22 at 1902 by Barbi Tuttle RN DISREGARD THIS OPENING NOTE
[2022-11-14 08:00] VITALS: BP 98/51
[2022-11-14] MEDS ORDERED: PANTOPRAZOLE 40 MG VIAL IV SCH ×2 (09:00→21:00)
[2022-11-14] MEDS ORDERED: GUAI-717 PO (11:26)
[2022-11-14] MEDS ORDERED: SENN-261 PO (11:26)
[2022-11-14] MEDS ORDERED: ALBU8.5H8 IH (11:56)
[2022-11-14 12:09] LABS: BASOPHILS % (AUTO) 0.9 % (0.0-2.0); EOSINOPHILS % (AUTO) 2.8 % (0.0-6.0); HEMATOCRIT 45 % (39-51); HEMOGLOBIN 14.9 g/dL (13.5-17.5); LYMPHOCYTES # (AUTO) 0.9 K/uL (0.8-4.8); LYMPHOCYTES % (AUTO) 22.4 % (20.0-44.0); MEAN CORPUSCULAR HGB CONC 33 g/dl (31.0-36.0); MEAN CORPUSCULAR VOLUME 95 fL (80-96); MONOCYTES # (AUTO) 0.3 K/uL (0.1-1.30); MONOCYTES % (AUTO) 6.9 % (2.0-12.0); NEUTROPHILS # (AUTO) 2.7 K/uL (1.8-8.9); PLATELET COUNT (AUTO) 89 K/uL (150-450); RED BLOOD CELL COUNT(AUTO) 4.72 MIL/uL (4.5-6.0); WHITE BLOOD COUNT (AUTO) 4.1 K/uL (4.3-11.0)
[2022-11-14 12:17] LABS: CALCIUM, SERUM 8.4 mg/dL (8.5-10.1); CARBON DIOXIDE 26 mmol/L (21-32); CREATININE 0.6 mg/dL (0.6-1.3); GLUCOSE 150 mg/dL (74-106); UREA NITROGEN, BLOOD 15 mg/dL (7-18)
[2022-11-14 12:25] LABS: CHLORIDE 107 mmol/L (98-107)
[2022-11-14 12:26] LABS: IRON, SERUM 187 ug/dl (50-175); TOTAL IRON BINDING CAPACITY 293 ug/dl (250-450)
[2022-11-14 12:35] LABS: SODIUM SERUM 139 mmol/L (136-145)
[2022-11-14 12:38] LABS: POTASSIUM 3.7 mmol/L (3.5-5.1)
[2022-11-14] MEDS ORDERED: ALBUTEROL FS 2.5 MG/3 ML VIAL.NEB NEB PRN (15:00)
[2022-11-14] MEDS ORDERED: METHADONE HCL 10 MG TABLET PO SCH (15:00)
[2022-11-14] MEDS: HYDROMORPHONE INJ 2 MG/ML DISP.SYRIN IV PRN ×2 (15:52→20:06)
[2022-11-14 16:00] VITALS: BP 126/64
--- NOTE | 2022-11-14 18:52 | NUR ---
RN CLOSING NOTE PATIENT AWAKE IN BED RESTING, A/O X 4. NO S/S OF PAIN NOTED AT THIS TIME. ON ROOM AIR, BREATHING EVEN UNLABORED, NO DISTRESS OR SHORTNESS OF BREATH NOTED. IV ACCESS L HAND #22G INTACT, PATENT AND FLUSHING WELL RUNNING D5NS @ 75ML/HR. SCHEDULE MEDICATIONS GIVEN. PATIENT WAS ENCOURAGED TO TURN AND REPOSITIONED PER PROTOCOL. FALL AND SAFETY MEASURES IN PLACE, BED ALARM ON, BED IN LOW AND LOCK POSITION, CALL LIGHT AND TABLE WITHIN EASY REACH, SIDE RAILS UP X2. ALL NEEDS ATTENDED AND ANTICIPATED. WILL ENDORSE TO INSTRUMENT LENS GRINDER NURSE. Addendum: 11/14/22 at 1902 by Barbi Tuttle RN IV ACCESS R HAND #22G
[2022-11-14 19:02] LABS: EOSINOPHILS % (MANUAL) 2 % (0-4); LYMPHOCYTES % (MANUAL) 21 % (16-48); MONOCYTES % (MANUAL) 8 % (0-11.0); NEUTROPHILS % (MANUAL) 69 (42-76)
[2022-11-14 19:55] LABS: HEMOGLOBIN 14.7 g/dL (13.5-17.5)
[2022-11-14 20:00] VITALS: BP 135/75
--- NOTE | 2022-11-14 20:38 | NUR ---
MS RN CLOSING NOTES; RECEIVED PATIENT AWAKE IN BED, BED IN LOW POSITION, CALL LIGHTS WITHIN REACH, NO COMPLAIN OF PAIN AND DISCOMFORT AT THIS TIME, ON ROOM AIR SATURATING WELL, PATIENT IS A/O X4 AMBULATORY USING CANE WITH ASSIST, ABLE TO MAKE NEEDS KNOWN, ON MONITORING FOR GI BLEEDING, IV LINE AT RIGHT HAND #22 WITH ONGOING D5 1/2 NSS@75 ML/HR INFUSING WELL, PATIENT KEPT CLEAN AND DRY ALL NEEDS MET WILL CONTINUE TO MONITOR.
[2022-11-14] MEDS: PANTOPRAZOLE 40 MG VIAL IV SCH ×3 (21:00→21:45)
[2022-11-14] MEDS: SENNOSIDES 8.6 MG TABLET PO SCH (21:41)
--- NOTE | 2022-11-14 22:00 | NUR ---
RN NOTES: PATIENT REFUSED SENOKOT 17.2 MG AT BEDTIME, PER PATIENT HAS EPISODE OF SOFT MUCUS BM IN TODAY, NOTED AND CARRY OUT. Addendum: 11/14/22 at 2355 by LINK REESE RN RN NOTES: MISTAKENLY UNDONE PROTONIC IV PUSH WHICH WAS GIVEN AT 2100, PATIENT STOOL SOFTENER RETURNED TO AUGUSTO,
[2022-11-15] VITALS: BP 82/54
[2022-11-15] MEDS: HYDROMORPHONE INJ 2 MG/ML DISP.SYRIN IV PRN ×6 (00:23→22:21)
[2022-11-15 00:53] LABS: HEMOGLOBIN 14.3 g/dL (13.5-17.5)
--- NOTE | 2022-11-15 06:58 | NUR ---
MS RN CLOSING NOTES; RECEIVED PATIENT AWAKE IN BED, BED IN LOW POSITION CALL LIGHTS WITHIN REACH, NO COMPLAIN OF PAIN AND DISCOMFORT AT THIS TIME, ON ROOM AIR SATURATING WELL, PATIENT WAS A/O X4 ABLE TO MAKE NEEDS KNOWN, AMBULATORY USING CANE TO BATHROOM WITH ASSIST, PATIENT KEPT CLEAN AND DRY ALL NEEDS MET WILL CONTINUE TO MONITOR.
--- NOTE | 2022-11-15 07:35 | NUR ---
RN OPENING NOTE PATIENT AWAKE IN BED RESTING, A/O X 4. NO S/S OF PAIN NOTED AT THIS TIME. ON ROOM AIR, BREATHING EVEN UNLABORED, NO DISTRESS OR SHORTNESS OF BREATH NOTED. IV ACCESS R HAND #22G INTACT, PATENT AND FLUSHING WELL. CONTINENT OF B AND B. FALL AND SAFETY MEASURES IN PLACE, BED ALARM ON, BED IN LOW AND LOCK POSITION, CALL LIGHT AND TABLE WITHIN EASY REACH, SIDE RAILS UP X2. WILL CONTINUE TO MONITOR.
[2022-11-15 08:15] VITALS: BP 110/70
[2022-11-15 08:42] LABS: HEMOGLOBIN 10.9 g/dL (13.5-17.5)
[2022-11-15] MEDS: SERTRALINE HCL 50 MG TABLET PO SCH (08:58)
[2022-11-15] MEDS: PANTOPRAZOLE 40 MG VIAL IV SCH ×2 (08:58→09:07)
[2022-11-15] MEDS: IV D5/ 0.9% NACL 1,000 ML IV PRN (09:06)
--- NOTE | 2022-11-15 09:11 | NUR ---
MS RN NOTE: STOOL SPECIMEN COLLECTED AND SENT TO LAB
[2022-11-15 12:27] LABS: HEMOGLOBIN 14.5 g/dL (13.5-17.5)
[2022-11-15 12:42] LABS: OCCULT BLOOD STOOL NEGATIVE (NEGATIVE)
[2022-11-15 16:46] VITALS: BP 152/76
--- NOTE | 2022-11-15 18:30 | NUR ---
RN CLOSING NOTE PATIENT AWAKE IN BED RESTING, A/O X 4. NO S/S OF PAIN NOTED AT THIS TIME. ON ROOM AIR, BREATHING EVEN UNLABORED, NO DISTRESS OR SHORTNESS OF BREATH NOTED. IV ACCESS L HAND #22G INTACT, PATENT AND FLUSHING WELL RUNNING D5NS @ 75ML/HR. SCHEDULE MEDICATIONS GIVEN. PATIENT WAS ENCOURAGED TO TURN AND REPOSITIONED PER PROTOCOL. FALL AND SAFETY MEASURES IN PLACE, BED ALARM ON, BED IN LOW AND LOCK POSITION, CALL LIGHT AND TABLE WITHIN EASY REACH, SIDE RAILS UP X2. ALL NEEDS ATTENDED AND ANTICIPATED. WILL ENDORSE TO SOUND ENGINEERING TECHNICIAN NURSE.
--- NOTE | 2022-11-15 19:25 | NUR ---
RN OPENING NOTE RECEIVED PATIENT AWAKE IN BED RESTING, A/O X 4 ABLE TO MAKE NEEDS KNOWN,TIARA WELL ON RM AIR,NO SOB/DISTRESS NOTED,NO COMPLAIN OF PAIN/DISCOMFORT AT THIS TIME,IV ACCESS R HAND #22G WITH D5 NS 75ML/HR INFUSING WELL,BRP PT WITH STEADY GAIT NOTED,BED IN LOW AND LOCK POSITION, CALL LIGHT AND TABLE WITHIN EASY REACH, SIDE RAILS UP X2. WILL CONTINUE TO MONITOR.
[2022-11-15 20:15] VITALS: BP 97/59
--- NOTE | 2022-11-15 22:20 | NUR ---
RN NOTES; PT COMPLAINED OF GEN,BODY PAIN 04/28,PRN DILAUDID 2MG/ML IV PUSH WAS GIVEN,NO A/R NOTED.
[2022-11-15] MEDS: SENNOSIDES 8.6 MG TABLET PO SCH (22:21)
[2022-11-16] MEDS: HYDROMORPHONE INJ 2 MG/ML DISP.SYRIN IV PRN ×5 (03:35→21:10)
--- NOTE | 2022-11-16 03:35 | NUR ---
RN NOTES; PT COMPLAINED OF GEN,BODY PAIN 04/28,PRN DILAUDID 2MG/ML IV PUSH WAS GIVEN,NO A/R NOTED.
--- NOTE | 2022-11-16 06:15 | NUR ---
RN CLOSING NOTES; PATIENT AWAKE IN BED RESTING, A/O X 4 ABLE TO MAKE NEEDS KNOWN,TIARA WELL ON RM AIR,NO SOB/DISTRESS NOTED,ALL NEEDS ATTENDED,DUE MEDS GIVEN ORDER,IV ACCESS L WRIST 24G WITH D5 NS 75ML/HR INFUSING WELL,PT WAS ASKING PAIN MEDS ROUTINELY,BRP PT WITH STEADY GAIT NOTED,BED IN LOW AND LOCK POSITION, CALL LIGHT AND TABLE WITHIN EASY REACH, SIDE RAILS UP X2. WILL ENDORSED TO NEXT SHIFT.
[2022-11-16] MEDS: IV D5/ 0.9% NACL 1,000 ML IV PRN (06:25)
--- NOTE | 2022-11-16 07:30 | NUR ---
MS RN OPENING NOTES RECEIVED PT ASLEEP IN BED IN SEMI-FOWLERS POSITION. AO X4. ON RA BREATHING NORMALLY. IV ACCESS ON L WRIST, D5NS RUNNNG AT 75 ML/HR. PT ON BRP. COMPLAINTS OF PAIN 8/10 BACK AND FOOT. WILL CHECK PAIN MEDS DUE. FALL SAFETY MEASURES IN PLACED AND MAINTAIN AT ALL TIMES. BED IN LOW AND LOCK POSITION. CALL LIGHT WITHIN REACH. SIDE RAILS UP X2. WILL CONTINUE TO MONITOR.
[2022-11-16 08:20] LABS: ALBUMIN 3.3 g/dL (3.4-5.0); BILIRUBIN,TOTAL 0.5 mg/dL (0.2-1.0); CALCIUM, SERUM 8.5 mg/dL (8.5-10.1); CREATININE 0.5 mg/dL (0.6-1.3); MAGNESIUM 2.3 mg/dL (1.8-2.4); PHOSPHORUS 3.3 mg/dL (2.5-4.9); POTASSIUM 3.9 mmol/L (3.5-5.1); TOTAL PROTEIN, SERUM 6.1 g/dL (6.4-8.2)
[2022-11-16 08:23] VITALS: BP 125/68
[2022-11-16 08:24] LABS: BASOPHILS % (AUTO) 0.8 % (0.0-2.0); EOSINOPHILS % (AUTO) 3.8 % (0.0-6.0); HEMATOCRIT 44 % (39-51); LYMPHOCYTES # (AUTO) 0.8 K/uL (0.8-4.8); LYMPHOCYTES % (AUTO) 19.6 % (20.0-44.0); MEAN CORPUSCULAR HGB CONC 35 g/dl (31.0-36.0); MEAN CORPUSCULAR VOLUME 93 fL (80-96); MONOCYTES # (AUTO) 0.3 K/uL (0.1-1.30); MONOCYTES % (AUTO) 7.9 % (2.0-12.0); NEUTROPHILS # (AUTO) 2.7 K/uL (1.8-8.9); NEUTROPHILS % (AUTO) 67.9 % (43.0-81.0); PLATELET COUNT (AUTO) 92 K/uL (150-450); RED BLOOD CELL COUNT(AUTO) 4.67 MIL/uL (4.5-6.0)
[2022-11-16] MEDS: PANTOPRAZOLE 40 MG VIAL IV SCH ×2 (08:31→21:09)
[2022-11-16] MEDS: SERTRALINE HCL 50 MG TABLET PO SCH (08:31)
[2022-11-16 16:03] VITALS: BP 119/70
--- NOTE | 2022-11-16 16:31 | NUR ---
RN MS NOTES [facility] APPEAL PT SEEN BY JENAE DOMINGO FOR DR. CHANDLER, DISCHARGE ORDER GIVEN, PT WOULD LIKE TO HAVE PRESCRIPTION PAIN MEDS ON DISCHARGE, PER JENAE DIRECTORY CLERK, MD WILL NOT PRESCRIBE IT, PT CALLED OFFICE OF DR. DRIVER, SPOKE WITH OFFICE STAFF, STATED THAT DR DRIVER SAID THAT MD DISCHARGING PT SHOULD PROVIDE PAIN MEDS PRESCRIPTION, INTELLIGENCE ANALYST INFORMED, SPOKE WITH PT, PROVIDED WITH PHONE NUMBER OF [facility] TO APPEAL DISCHARGE, ASSISTED PT IN CALLING FOR APPEAL, .
--- NOTE | 2022-11-16 18:31 | NUR ---
MS RN CLOSING NOTES PT LYING IN BED RESTING COMFORTABLY, AO X4, IN SEMI-FOWLERS POSITION. ON RA BREATHING NORMALLY. IV ACCESS ON LEFT WRIST 24 G RUNNING ON D5NS 75 ML/HR. APPEALED DISCHARGE ORDER. COMPLAINTS OF PAIN 8-9 ON BACK AND FOOT. PRN DILAUDID FOR PAIN MGT. NO SIGNS OF DISTRESS. FALL SAFETY MEASURES IN PLACED AND MAINTAIN AT ALL TIMES. BED IN LOW AND LOCK POSITION. CALL LIGHT WITHIN REACH. SIDE RAILS UP X2. WILL ENDORSE TO NIGHTSHIFT NURSE.
[2022-11-16 20:00] VITALS: BP 113/68
[2022-11-16] MEDS: SENNOSIDES 8.6 MG TABLET PO SCH (22:01)
[2022-11-16 23:18] LABS: BASOPHILS % (MANUAL) 0 % (0.0-2.0); EOSINOPHILS % (MANUAL) 4 % (0-4); LYMPHOCYTES % (MANUAL) 21 % (16-48); MONOCYTES % (MANUAL) 9 % (0-11.0); NEUTROPHILS % (MANUAL) 66 (42-76)
[2022-11-17] MEDS: HYDROMORPHONE INJ 2 MG/ML DISP.SYRIN IV PRN ×6 (01:44→23:35)
--- NOTE | 2022-11-17 07:35 | NUR ---
MS LINDA CLOSING NOTES Pt. resting at this time. pain meds helped but he stated that his pain on and off. He also stated "thank you" . All due meds given and all needs met . No signs of any acute distress or any discomfort noted at this time. Kept him warm and comfortable at all times. Bed in low and lock in position . will endorse to am nurse for continuity of care. Place call light at reach.
--- NOTE | 2022-11-17 07:39 | NUR ---
MS RN OPENING NOTE (DAYSHIFT) RECEIVED PT ASLEEP IN BED IN SEMI-FOWLERS POSITION. PATIENT EASILY AROUSED, A AND O X 4. ON RA BREATHING NORMALLY. IV ACCESS ON L WRIST, D5 NS INFUSING AT 75 ML/HR. PATIENT IS WEARING SCD SLEEVES TO BOTH CALVES TO PREVENT BLOOD CLOTS. PT ON BRP. COMPLAINTS OF PAIN 6/10 TO BACK AND FOOT. WILL CHECK WHEN PAIN MEDS DUE. FALL SAFETY MEASURES IN PLACE AND MAINTAINED AT ALL TIMES. BED IN LOW AND LOCK POSITION. CALL LIGHT WITHIN REACH. SIDE RAILS UP X 2. WILL CONTINUE TO CARE FOR AND MONITOR PATIENT PER HOSPITALIST MD's POC.
[2022-11-17 08:00] VITALS: BP 109/77
[2022-11-17] MEDS: SERTRALINE HCL 50 MG TABLET PO SCH (08:39)
[2022-11-17] MEDS: PANTOPRAZOLE 40 MG VIAL IV SCH (08:39)
[2022-11-17] MEDS: IV D5/ 0.9% NACL 1,000 ML IV PRN (14:51)
[2022-11-17 16:00] VITALS: BP_SYST 108; BP_SYST 90; BP_DIAS 52; BP_DIAS 76
--- NOTE | 2022-11-17 18:49 | NUR ---
MS RN CLOSING NOTE (DAYSHIFT) PT LYING IN BED RESTING COMFORTABLY, ALERT AND ORIENTED X 4, IN SEMI-FOWLERS POSITION. ON RA BREATHING NORMALLY. IV ACCESS ON LEFT WRIST 24 G INFUSING D5 NS @ 75 ML/HR. COMPLAINTS OF PAIN 8-9 ON BACK AND FOOT. PRN DILAUDID FOR PAIN MGT REDUCES PAIN TO 6/10. NO SIGNS OF DISTRESS. FALL SAFETY MEASURES IN PLACE AND MAINTAINED AT ALL TIMES. BED IN LOW AND LOCK POSITION. CALL LIGHT WITHIN REACH. SIDE RAILS UP X 2. WILL ENDORSE TO NIGHTSHIFT NURSE FOR ANAT.
--- NOTE | 2022-11-17 19:30 | NUR ---
MS RN OPENING NOTE RECEIVED PT AWAKE IN BED, WATCHING TV AT THIS TIME. A/O X4, ABLE TO MAKE NEEDS KNOWN. ON RA BREATHING NORMALLY WITH NO SOB OR DISTRESS NOTED. COMPLAINS THAT PAIN MEDICATION WEARS OFF TOO QUICKLY BEFORE NEXT SCHEDULE. REASSESSMENT OF PAIN MED AT 02/25. ALSO MENTIONS THAT HE WAS REFUSING DC BECAUSE HE WANTS A PCP ASSIGNED TO HIM BEFORE HE LEAVES. IV ACCESS ON L WRIST, PATENT AND INTACT, INFUSING D5NS AT 75 ML/HR. SAFETY MEASURES IN PLACE: BED IN LOW AND LOCK POSITION, SIDE RAILS UP X2, CALL LIGHT AND TRAY TABLE WITHIN REACH. WILL CONTINUE TO MONITOR AND ASSIST.
[2022-11-17 20:00] VITALS: BP 126/82
[2022-11-17] MEDS: SENNOSIDES 8.6 MG TABLET PO SCH (21:02)
[2022-11-17] MEDS: PANTOPRAZOLE 40 MG TABLET.DR PO SCH (21:02)
[2022-11-18] MEDS: HYDROMORPHONE INJ 2 MG/ML DISP.SYRIN IV PRN ×2 (03:33→08:09)
[2022-11-18] MEDS: IV D5/ 0.9% NACL 1,000 ML IV PRN (04:41)
--- NOTE | 2022-11-18 06:49 | NUR ---
MS RN CLOSING NOTES PT SLEEPING IN BED AT THIS TIME, EASILY AROUSABLE. A/O X4, ABLE TO MAKE NEEDS KNOWN. STABLE ON RA BREATHING NORMALLY WITH NO SOB OR DISTRESS NOTED. C/O PAIN Q4HR, GIVEN PRESCRIBED DILAUDID 2MG WHEN DUE. IV ACCESS ON L WRIST, PATENT AND INTACT, INFUSING D5NS AT 75 ML/HR. ALL CARE PROVIDED AND MEDS TOLERATED WELL. SAFETY MEASURES MAINTAINED: BED IN LOW AND LOCKED POSITION, SIDE RAILS UP X2, CALL LIGHT AND TRAY TABLE WITHIN REACH. WILL ENDORSE ANAT TO DAY SHIFT NURSE.
[2022-11-18 07:00] VITALS: BP 117/71
--- NOTE | 2022-11-18 07:52 | NUR ---
MS RN OPENING NOTE (DAYSHIFT) RECEIVED PT AWAKE IN BED, C/O 8/10 PAIN IN LOW BACK AND LEFT FOOT. PATIENT IS A AND O X 4. ON RA BREATHING NORMALLY. IV ACCESS ON L WRIST, D5 NS INFUSING AT 75 ML/HR. PATIENT IS WEARING SCD SLEEVES TO BOTH CALVES TO PREVENT BLOOD CLOTS. PT ON BRP. WILL CHECK WHEN PAIN MEDS DUE. FALL SAFETY MEASURES IN PLACE AND MAINTAINED AT ALL TIMES. BED IN LOW AND LOCK POSITION. CALL LIGHT WITHIN REACH. SIDE RAILS UP X 2. WILL CONTINUE TO CARE FOR AND MONITOR PATIENT PER HOSPITALIST MD's POC.
[2022-11-18] MEDS: SERTRALINE HCL 50 MG TABLET PO SCH (08:08)
[2022-11-18] MEDS: PANTOPRAZOLE 40 MG TABLET.DR PO SCH (08:08)
[2022-11-18] MEDS ORDERED: HYDROCODONE/APAP 10/325MG TABLET PO PRN (08:30)
--- NOTE | 2022-11-18 13:38 | NUR ---
MS SCREW MACHINE TENDER TO HOME NOTE (DAYSHIFT) Patient withdrew his appeal to discharge and agreed to discharge home today. Patient tolerated well the removal of the # 22 gauge PIV catheter, fully intact from his left wrist. Patient demonstrated understanding of his home care discharge instructions using teach back method in his own words. Patient departed the [facility] at 13:30 hours via wheel chair to taxi bound [facility] in [place].
== END 2022-11-18 13:30 | DRG 378 ==
LOC: ER 17:56 → MED 23:35
PROVIDERS: ADMIT Internal Medicine Nephrology; ATTEND Nurse Practitioner Family
DX: K92.2 Gastrointestinal hemorrhage, unspecified (principal); K76.6 Portal hypertension; J44.9 Chronic obstructive pulmonary disease, unspecified; Z85.820 Personal history of malignant melanoma of skin; Z95.0 Presence of cardiac pacemaker; K74.60 Unspecified cirrhosis of liver; G89.4 Chronic pain syndrome; M54.9 Dorsalgia, unspecified; D69.6 Thrombocytopenia, unspecified; Z88.0 Allergy status to penicillin; Z88.1 Allergy status to other antibiotic agents; Z79.899 Other long term (current) drug therapy
CPT/HCPCS: 36415; 71045-TC; 80048-TC; 80053-TC; 80076-TC; 81001; 82272-TC; 83540-TC; 83690-TC; 83735-TC; 84100-TC; 85025-TC; 85027-TC; 85730-TC; 87081-TC; 93307-TC; 94799-TC; A4223; C9113; C9803; G0378; J1170; J2270; J2405; J7030; J7042; J7050; Q9967